=== PATIENT | female | born 1975 | race Caucasian/White ===

== ENCOUNTER 2017-03-23 13:02 | Inpatient (IN) | payer BC ==
[2017-03-23] MEDS ORDERED: Nalbuphine 20 MG/1 ML Amp IVPUSH PRN (13:05)
[2017-03-23] MEDS ORDERED: Ondansetron 4 MG/2 ML SDV IVPUSH PRN ×2 (13:05→13:34)
[2017-03-23] MEDS ORDERED: Sodium Chloride 0.9% 10 ML Syringe FLUSH PRN (13:05)
[2017-03-23] MEDS ORDERED: Lactated Ringers 1,000 ML ONE (13:08)
[2017-03-23] MEDS: Lactated Ringers 1,000 ML IV SCH ×2 (13:10→14:15)
[2017-03-23] MEDS ORDERED: fentaNYL 100 MCG/2 ML SDV EPIDUR PRN (13:34)
[2017-03-23] MEDS ORDERED: ePHEDrine 50 MG/ML SDV IVPUSH PRN (13:34)
--- NOTE | 2017-03-23 13:39 | PCM.PREANE ---
Preanesthetic Assessment - Anesthesia/Transfusion/Family Hx Anesthesia History: Prior Anesthesia Without Reaction Family History of Anesthesia Reaction: No Transfusion History: No Prior Transfusion(s) Intubation History: Unknown - Review of Systems General: No Symptoms Pulmonary: No Symptoms Cardiovascular: No Symptoms Gastrointestinal: No Symptoms Neurological: No Symptoms Other: Reports: None - Physical Assessment NPO Status Date: 03/23/17 NPO Status Time: 09:00 Pulse: 89 O2 Sat by Pulse Oximetry: 98 Respiratory Rate: 20 Blood Pressure: 115/75 Temperature: 36.7 C Height: 1.65 m Weight: 73.482 kg ASA Class: 2 Mental Status: Alert & Oriented x3 Airway Class: Mallampati = 2 Dentition: Reports: Normal Dentition, Caries Thyro-Mental Finger Breadths: 3 Mouth Opening Finger Breadths: 3 ROM/Head Extension: Full Lungs: Clear to Auscultation, Normal Respiratory Effort Cardiovascular: Regular Rate, Regular Rhythm, No Murmurs - Lab Values: Laboratory Last Values WBC 17.93 K/mm3 (3.98-10.04) H 03/23/17 13:13 RBC 4.41 M/mm3 (3.98-5.22) 03/23/17 13:13 Hgb 13.5 gm/L (11.2-15.7) 03/23/17 13:13 Hct 40.7 % (34.1-44.9) 03/23/17 13:13 MCV 92.3 fl (79.4-94.8) 03/23/17 13:13 MCH 30.6 pg (25.6-32.2) 03/23/17 13:13 MCHC 33.2 g/dl (32.2-35.5) 03/23/17 13:13 RDW Std Deviation 46.4 fL (36.4-46.3) H 03/23/17 13:13 Plt Count 187 K/mm3 (182-369) 03/23/17 13:13 MPV 12.0 fl (9.4-12.3) 03/23/17 13:13 Neut % (Auto) 85.6 % (34.0-71.1) H 03/23/17 13:13 Lymph % (Auto) 8.5 % (19.3-51.7) L 03/23/17 13:13 [place] % (Auto) 5.4 % (4.7-12.5) 03/23/17 13:13 Eos % (Auto) 0.1 (0.7-5.8) L 03/23/17 13:13 Baso % (Auto) 0.1 % (0.1-1.2) 03/23/17 13:13 Neut # (Auto) 15.33 K/mm3 (1.56-6.13) H 03/23/17 13:13 Lymph # (Auto) 1.53 K/mm3 (1.18-3.74) 03/23/17 13:13 [place] # (Auto) 0.97 K/mm3 (0.24-0.36) H 03/23/17 13:13 Eos # (Auto) 0.02 K/mm3 (0.04-0.36) L 03/23/17 13:13 Baso # (Auto) 0.02 K/mm3 (0.01-0.08) 03/23/17 13:13 Above labs reviewed and noted. 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: Other OB/BYN History: Csection 2010 - SUBSTANCE USE Smoking Status *Q: Never Smoker Second Hand Smoke Exposure: No Recreational Drug Use History: No - CURRENT (IN HOUSE) MEDS Current Meds: Current Medications Ephedrine Sulfate (Ephedrine Sulfate) 5 mg IVPUSH ASDIRECTED PRN PRN Reason: Hypotension Fentanyl (Sublimaze) 100 mcg EPIDUR Q3H PRN PRN Reason: Pain Fentanyl/Bupivacaine HCl (Fentanyl/Bupivacaine/Ns 2 Mcg-0.125% 100 Ml) 100 ml EPIDUR ASDIRECTED BRITTANY Lactated Ringer's (Ringers, Lactated) 1,000 mls @ 100 mls/hr IV ASDIRECTED BRITTANY Last Admin: 03/23/17 13:10 Dose: 999 mls/hr Oxytocin 20 unit/ Lactated (Ringer's) 1,002 mls @ 500 mls/hr IV ASDIRECTED BRITTANY Nalbuphine HCl (Nubain) 10 mg IVPUSH Q2H PRN PRN Reason: Pain (moderate 4-6) Ondansetron HCl (Zofran) 4 mg IVPUSH Q4H PRN PRN Reason: Nausea/Vomiting Ondansetron HCl (Zofran) 4 mg IVPUSH ONETIME PRN PRN Reason: Nausea/Vomiting Sodium Chloride (Saline Flush) 10 ml FLUSH ASDIRECTED PRN PRN Reason: Keep Vein Open Discontinued Medications Lactated Ringer's (Ringers, Lactated) Confirm Administered Dose 1,000 mls @ as directed .ROUTE .[facility] ONE Stop: 03/23/17 13:09
[2017-03-23] MEDS ORDERED: Bupivacaine/fentaNYL/NS 100 ML Bag EPIDUR SCH (13:45)
--- NOTE | 2017-03-23 15:35 | PCM.LDHP ---
L&D History of Present Illness - General Date of Service: 03/23/17 Admit Problem/Dx: Patient Status Order with Admit Dx/Problem 03/23/17 13:05 Patient Status [ADT] Routine Admission Diagnosis/Problem Admission Diagnosis/Problem Normal labor Source of Information: Patient History Limitations: Reports: No Limitations - History of Present Illness Introduction:: 41-year-old first delivery followed by 2 vaginal after section. Patient presented to labor and delivered estimated gestational age of 39 weeks and 1 day in active labor at 6-7 cm dilated 100% effaced anterior soft vertex -1 membranes ruptured spontaneously group B strep negative oh negative antibody screen negative hemoglobin hematocrit on 4.1/ and 2.9 platelets 336,000, rubella positive, RPR nonreactive, hepatitis B surface antigen -1 hour OB glucose screen on 01/06/17 was 191 3 hour glucose tolerance test report is within normal limits patient desires repeat . 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: : 4 Para: 3 (3003) Other OB/BYN History: Csection 2010 Social & Family History - Family History Family Medical History: Noncontributory - Tobacco Use Smoking Status *Q: Never Smoker Second Hand Smoke Exposure: No - Recreational Drug Use Recreational Drug Use: No H&P Review of Systems - Review of Systems: Review Of Systems: See Below General: Reports: No Symptoms HEENT: Reports: No Symptoms Pulmonary: Reports: No Symptoms Cardiovascular: Reports: No Symptoms Gastrointestinal: Reports: No Symptoms Genitourinary: Reports: No Symptoms Musculoskeletal: Reports: No Symptoms Skin: Reports: No Symptoms Psychiatric: Reports: No Symptoms Neurological: Reports: No Symptoms Hematologic/Lymphatic: Reports: No Symptoms Immunologic: Reports: No Symptoms L&D Exam - Exam Exam: See Below - Vital Signs Vital Signs: Last Vital Signs Temp 98.1 F 03/23/17 13:49 Pulse 96 03/23/17 14:31 Resp 20 03/23/17 13:49 BP 97/52 L 03/23/17 14:31 Pulse Ox 98 03/23/17 13:49 Weight: 162 lb - OB Specific Fundal Height In cm: 39 Contraction Duration (sec): 60 Contraction Frequency (min): 2 Contraction Intensity: Moderate to Strong Movement: Active Heart Tones: Present Heart Tones per Min: 135 Heart Rate (FHR) Variability: Moderate (6-25 bmp) Presentation: Vertex - Mackey Score Mackey Score Cervix Position: Anterior Mackey Score Consistency: Soft Mackey Score Effacement: >80% Mackey Score Dilation: > 5 cm Mackey Score Infant's Station: -1 ,0 Mackey Score Total: 12 - Exam General: Alert, Oriented HEENT: Conjunctiva Clear, Mucosa Moist & [place], PERRLA Neck: Supple, Trachea Midline Lungs: Clear to Auscultation, Normal Respiratory Effort Cardiovascular: Regular Rate, Regular Rhythm GI/Abdominal Exam: Normal Bowel Sounds, Soft, Non-Tender, No Organomegaly, No Distention, No Abnormal Bruit, No Mass, Pelvis Stable Rectal Exam: Normal Exam Genitourinary: Normal external exam Extremities: Normal Inspection, Normal Range of Motion, Non-Tender, No Pedal Edema, Normal Capillary Refill Skin: Warm, Dry, Intact Neurological: Cranial Nerves Intact, Reflexes Equal Bilateral Psychiatric: Alert, Normal Affect, Normal Mood - Patient Data Lab Results Last 24 hrs: Laboratory Results - last 24 hr 03/23/17 03/23/17 Range/Units 13:13 13:13 WBC 17.93 H (3.98-10.04) K/mm3 RBC 4.41 (3.98-5.22) M/mm3 Hgb 13.5 (11.2-15.7) gm/L Hct 40.7 (34.1-44.9) % MCV 92.3 (79.4-94.8) fl MCH 30.6 (25.6-32.2) pg MCHC 33.2 (32.2-35.5) g/dl RDW Std Deviation 46.4 H (36.4-46.3) fL Plt Count 187 (182-369) K/mm3 MPV 12.0 (9.4-12.3) fl Neut % (Auto) 85.6 H (34.0-71.1) % Lymph % (Auto) 8.5 L (19.3-51.7) % [place] % (Auto) 5.4 (4.7-12.5) % Eos % (Auto) 0.1 L (0.7-5.8) Baso % (Auto) 0.1 (0.1-1.2) % Neut # (Auto) 15.33 H (1.56-6.13) K/mm3 Lymph # (Auto) 1.53 (1.18-3.74) K/mm3 [place] # (Auto) 0.97 H (0.24-0.36) K/mm3 Eos # (Auto) 0.02 L (0.04-0.36) K/mm3 Baso # (Auto) 0.02 (0.01-0.08) K/mm3 Manual Slide Review Abnormal smear Blood Type O NEGATIVE Gel Antibody Screen Positive Result Diagrams: 03/23/17 13:13 - Problem List (1) 39 weeks gestation of SNOMED Code(s): 79172080 ICD Code: Z3A.39 - 39 WEEKS GESTATION OF Status: Acute Current Visit: Yes (2) H/O section complicating SNOMED Code(s): 225726372 ICD Code: O34.219 - MATERNAL CARE FOR UNSP TYPE SCAR FROM PREVIOUS DEL Status: Acute Current Visit: Yes (3) Vaginal after () SNOMED Code(s): 337764253 ICD Code: O34.219 - MATERNAL CARE FOR UNSP TYPE SCAR FROM PREVIOUS DEL Status: Acute Current Visit: Yes Problem List Initiated/Reviewed/Updated: No Orders Last 24hrs: Active Orders 24 hr Category Date Time Status Patient Status [ADT] Routine ADT 03/23/17 13:05 Active Notify Provider [RC] PFP Care 03/23/17 13:05 Active Peripheral IV Care [RC] . DIRECTED Care 03/23/17 13:05 Active Vital Signs [RC] PER UNIT ROUTINE Care 03/23/17 13:05 Active Clear Liquid Diet [DIET] Diet 03/23/17 Dinner Active ANTIBODY IDENTIFICATION [BBK] Stat Lab 03/23/17 13:13 Results TYPE AND SCREEN [BBK] Stat Lab 03/23/17 13:13 Results Bupivacaine/fentaNYL/NS [fentaNYL/Bupivacaine/NS 2 MCG- Med 03/23/17 13:45 Active 0.125% 100 ML] 100 ml EPIDUR ASDIRECTED Lactated Ringers [Ringers, Lactated] 1,000 ml Med 03/23/17 13:15 Active IV ASDIRECTED Nalbuphine [Nubain] Med 03/23/17 13:05 Active 10 mg IVPUSH Q2H PRN Ondansetron [Zofran] Med 03/23/17 13:34 Active 4 mg IVPUSH ONETIME PRN Ondansetron [Zofran] Med 03/23/17 13:05 Active 4 mg IVPUSH Q4H PRN Oxytocin [Pitocin] 20 unit Med 03/23/17 13:15 Active Lactated Ringers [Ringers, Lactated] 1,000 ml IV ASDIRECTED Sodium Chloride 0.9% [Saline Flush] Med 03/23/17 13:05 Active 10 ml FLUSH ASDIRECTED PRN ePHEDrine [ePHEDrine Sulfate] Med 03/23/17 13:34 Active 5 mg IVPUSH ASDIRECTED PRN fentaNYL [Sublimaze] Med 03/23/17 13:34 Active 100 mcg EPIDUR Q3H PRN Electronic Heart Tones Ext w TOCO [WOMSER] Oth 03/23/17 13:05 Ordered Routine Electronic Heart Tones Internal [WOMSER] Per Unit Oth 03/23/17 13:05 Ordered Routine Peripheral IV Insertion Adult [OM.PC] Routine Oth 03/23/17 13:05 Ordered Resuscitation Status Routine Resus Stat 03/23/17 13:05 Ordered Medication Orders Ephedrine Sulfate (Ephedrine Sulfate) 5 mg IVPUSH ASDIRECTED PRN PRN Reason: Hypotension Fentanyl (Sublimaze) 100 mcg EPIDUR Q3H PRN PRN Reason: Pain Last Admin: 03/23/17 13:51 Dose: 100 mcg Fentanyl/Bupivacaine HCl (Fentanyl/Bupivacaine/Ns 2 Mcg-0.125% 100 Ml) 100 ml EPIDUR ASDIRECTED [facility] Last Admin: 03/23/17 13:50 Dose: 100 ml Lactated Ringer's (Ringers, Lactated) 1,000 mls @ 100 mls/hr IV ASDIRECTED [facility] Last Admin: 03/23/17 14:15 Dose: 999 mls/hr Infusion: 03/23/17 14:11 Dose: 999 mls/hr Admin: 03/23/17 13:10 Dose: 999 mls/hr Oxytocin 20 unit/ Lactated (Ringer's) 1,002 mls @ 500 mls/hr IV ASDIRECTED BRITTANY Last Admin: 03/23/17 15:16 Dose: 500 mls/hr Nalbuphine HCl (Nubain) 10 mg IVPUSH Q2H PRN PRN Reason: Pain (moderate 4-6) Last Admin: 03/23/17 13:40 Dose: 10 mg Ondansetron HCl (Zofran) 4 mg IVPUSH Q4H PRN PRN Reason: Nausea/Vomiting Ondansetron HCl (Zofran) 4 mg IVPUSH ONETIME PRN PRN Reason: Nausea/Vomiting Sodium Chloride (Saline Flush) 10 ml FLUSH ASDIRECTED PRN PRN Reason: Keep Vein Open
--- NOTE | 2017-03-23 15:40 | PCM.DEL ---
L & D Note - General Info Date of Service: 03/23/17 - Delivery Note Labor: Spontaneous Delivery Outcome: Livebirth (Male liveborn 1510 hrs. Friday03/23/17 , second -degree midline laceration repaired with 3-0 Monocryl, weight pending, Apgars 9/ 9) Delivery Method: Spontaneous Vaginal Delivery-Single Delivery Mode: Spontaneous Presentation: Right Occiput Anterior (KIARA) Nuchal Cord: None Prep: Povidone-Iodine (Betadine Anesthesia Type: Epidural Amniotic Fluid Description: Clear Episiotomy Type: None Laceration: 2nd Degree Suture type: Other (Monocryl) Suture size: 3-0 Placenta: Intact, Spontaneous (1513 hrs. examined intact discarded) Cord: 3 Vessels Estimated Blood Loss: 250 Resuscitation Needed: No [place]: Suctioned, Bulb Syringe, Stimulated, Warmed, [place] Used, Warmer Used Provider: Aurelio Mosquera Score 1 min: 8 Score 5 min: 9 - Patient Data Vitals - Most Recent: Last Vital Signs Temp 98.1 F 03/23/17 13:49 Pulse 96 03/23/17 14:31 Resp 20 03/23/17 13:49 BP 97/52 L 03/23/17 14:31 Pulse Ox 98 03/23/17 13:49 Weight - Most Recent: 162 lb Lab Results Last 24 Hours: Laboratory Results - last 24 hr 03/23/17 03/23/17 Range/Units 13:13 13:13 WBC 17.93 H (3.98-10.04) K/mm3 RBC 4.41 (3.98-5.22) M/mm3 Hgb 13.5 (11.2-15.7) gm/L Hct 40.7 (34.1-44.9) % MCV 92.3 (79.4-94.8) fl MCH 30.6 (25.6-32.2) pg MCHC 33.2 (32.2-35.5) g/dl RDW Std Deviation 46.4 H (36.4-46.3) fL Plt Count 187 (182-369) K/mm3 MPV 12.0 (9.4-12.3) fl Neut % (Auto) 85.6 H (34.0-71.1) % Lymph % (Auto) 8.5 L (19.3-51.7) % [place] % (Auto) 5.4 (4.7-12.5) % Eos % (Auto) 0.1 L (0.7-5.8) Baso % (Auto) 0.1 (0.1-1.2) % Neut # (Auto) 15.33 H (1.56-6.13) K/mm3 Lymph # (Auto) 1.53 (1.18-3.74) K/mm3 [place] # (Auto) 0.97 H (0.24-0.36) K/mm3 Eos # (Auto) 0.02 L (0.04-0.36) K/mm3 Baso # (Auto) 0.02 (0.01-0.08) K/mm3 Manual Slide Review Abnormal smear Blood Type O NEGATIVE Gel Antibody Screen Positive Med Orders - Current: Current Medications Ephedrine Sulfate (Ephedrine Sulfate) 5 mg IVPUSH ASDIRECTED PRN PRN Reason: Hypotension Fentanyl (Sublimaze) 100 mcg EPIDUR Q3H PRN PRN Reason: Pain Last Admin: 03/23/17 13:51 Dose: 100 mcg Fentanyl/Bupivacaine HCl (Fentanyl/Bupivacaine/Ns 2 Mcg-0.125% 100 Ml) 100 ml EPIDUR ASDIRECTED [facility] Last Admin: 03/23/17 13:50 Dose: 100 ml Lactated Ringer's (Ringers, Lactated) 1,000 mls @ 100 mls/hr IV ASDIRECTED [facility] Last Admin: 03/23/17 14:15 Dose: 999 mls/hr Oxytocin 20 unit/ Lactated (Ringer's) 1,002 mls @ 500 mls/hr IV ASDIRECTED [facility] Last Admin: 03/23/17 15:16 Dose: 500 mls/hr Nalbuphine HCl (Nubain) 10 mg IVPUSH Q2H PRN PRN Reason: Pain (moderate 4-6) Last Admin: 03/23/17 13:40 Dose: 10 mg Ondansetron HCl (Zofran) 4 mg IVPUSH Q4H PRN PRN Reason: Nausea/Vomiting Ondansetron HCl (Zofran) 4 mg IVPUSH ONETIME PRN PRN Reason: Nausea/Vomiting Sodium Chloride (Saline Flush) 10 ml FLUSH ASDIRECTED PRN PRN Reason: Keep Vein Open Discontinued Medications Lactated Ringer's (Ringers, Lactated) Confirm Administered Dose 1,000 mls @ as directed .ROUTE .[facility] ONE Stop: 03/23/17 13:09 Last Admin: 03/23/17 15:17 Dose: Not Given - Problem List & Annotations (1) 39 weeks gestation of SNOMED Code(s): 08588911 Code(s): Z3A.39 - 39 WEEKS GESTATION OF Status: Acute Current Visit: Yes (2) H/O section complicating SNOMED Code(s): 830784705 Code(s): O34.219 - MATERNAL CARE FOR UNSP TYPE SCAR FROM PREVIOUS DEL Status: Acute Current Visit: Yes (3) Vaginal after () SNOMED Code(s): 612865893 Code(s): O34.219 - MATERNAL CARE FOR UNSP TYPE SCAR FROM PREVIOUS DEL Status: Acute Current Visit: Yes (4) Second degree perineal laceration, delivered, current hospitalization SNOMED Code(s): 761999190 Code(s): O70.1 - SECOND DEGREE PERINEAL LACERATION DURING DELIVERY Status: Acute Current Visit: Yes - Problem List Review Problem List Initiated/Reviewed/Updated: No - My Orders Last 24 Hours: My Active Orders 03/23/17 13:05 Patient Status [ADT] Routine Notify Provider [RC] PFP Peripheral IV Care [RC] . DIRECTED Vital Signs [RC] PER UNIT ROUTINE Nalbuphine [Nubain] 10 mg IVPUSH Q2H PRN Ondansetron [Zofran] 4 mg IVPUSH Q4H PRN Sodium Chloride 0.9% [Saline Flush] 10 ml FLUSH ASDIRECTED PRN Electronic Heart Tones Ext w TOCO [WOMSER] Routine Electronic Heart Tones Internal [WOMSER] Per Unit Routine Peripheral IV Insertion Adult [OM.PC] Routine Resuscitation Status Routine 03/23/17 13:13 ANTIBODY IDENTIFICATION [BBK] Stat TYPE AND SCREEN [BBK] Stat 03/23/17 13:15 Lactated Ringers [Ringers, Lactated] 1,000 ml IV ASDIRECTED Oxytocin [Pitocin] 20 unit Lactated Ringers [Ringers, Lactated] 1,000 ml IV ASDIRECTED 03/23/17 Dinner Clear Liquid Diet [DIET] - Plan Plan:: Spontaneous vaginal delivery, male liveborn, under epidural anesthesia, second- degree midline laceration, laceration repair with 3-0 Monocryl 1. No no episiotomy. successful. Delivery at 1510 hrs. Friday02/20/17 placenta delivered at 1513 hrs. intact discarded.
[2017-03-23] MEDS ORDERED: Docusate Sodium 100 MG Cap PO PRN (15:44)
[2017-03-23] MEDS ORDERED: Acetaminophen/oxyCODONE 325-5 MG Tab PO PRN (15:44)
[2017-03-23] MEDS ORDERED: Witch Hazel Medicated Pads 100/Jar TOP PRN (15:44)
[2017-03-23] MEDS ORDERED: Acetaminophen 325 MG Tab PO PRN (15:44)
[2017-03-23] MEDS ORDERED: Lanolin 100% Cream 7 GM Tube TOP PRN (15:44)
[2017-03-23] MEDS ORDERED: Benzocaine/Menthol 20%-0.5% Spray 56 GM Canister TOP PRN (15:44)
--- NOTE | 2017-03-23 20:54 | PCM48HPAN ---
Post Anesthesia Note - EVALUATION WITHIN 48HRS OF ANESTHETIC Vital Signs in Normal Range: Yes Patient Participated in Evaluation: Yes Respiratory Function Stable: Yes Airway Patent: Yes Cardiovascular Function Stable: Yes Hydration Status Stable: Yes Pain Control Satisfactory: Yes Nausea and Vomiting Control Satisfactory: Yes Mental Status Recovered: Yes
[2017-03-23] MEDS: Ibuprofen 600 MG Tab PO PRN (21:09)
[2017-03-23] MEDS ORDERED: Bupivacaine 0.25% 10 ML SDV ONE (22:22)
[2017-03-24] MEDS: Ibuprofen 600 MG Tab PO PRN ×3 (02:45→12:18)
--- NOTE | 2017-03-24 08:41 | PCM.DCSUM1 ---
Discharge Summary - Hospital Course Free Text/Narrative:: [facility] LIVE L/D Delivery Note Patient Name: WILMER CASTILLO Date of : 77 Patient Status: Inpatient Attending Provider: Aurelio Mosquera Date: 03/23/17 15:36 Initialization Date: 03/23/17 15:36 L & D Note - General Info Date of Service: 03/23/17 - Delivery Note Labor: Spontaneous Delivery Outcome: Livebirth (Male liveborn 1510 hrs. Friday03/23/17 , second -degree midline laceration repaired with 3-0 Monocryl, weight pending, Apgars 9/ 9) Infant Delivery Method: Spontaneous Vaginal Delivery-Single Infant Delivery Mode: Spontaneous Presentation: Right Occiput Anterior (KIARA) Nuchal Cord: None Prep: Povidone-Iodine (Betadine Anesthesia Type: Epidural Amniotic Fluid Description: Clear Episiotomy Type: None Laceration: 2nd Degree Suture type: Other (Monocryl) Suture size: 3-0 Placenta: Intact, Spontaneous (1513 hrs. examined intact discarded) Cord: 3 Vessels Estimated Blood Loss: 250 Resuscitation Needed: No : Suctioned, Bulb Syringe, Stimulated, Warmed, Benge Used, Warmer Used Provider: Aurelio Mosquera Score 1 min: 8 Score 5 min: 9 - Patient Data Vitals - Most Recent: Last Vital Signs Temp 98.1 F 03/23/17 13:49 Pulse 96 03/23/17 14:31 Resp 20 03/23/17 13:49 BP 97/52 L 03/23/17 14:31 Pulse Ox 98 03/23/17 13:49 Weight - Most Recent: 162 lb Lab Results Last 24 Hours: Laboratory Results - last 24 hr 03/23/17 03/23/17 Range/Units 13:13 13:13 WBC 17.93 H (3.98-10.04) K/mm3 RBC 4.41 (3.98-5.22) M/mm3 Hgb 13.5 (11.2-15.7) gm/L Hct 40.7 (34.1-44.9) % MCV 92.3 (79.4-94.8) fl MCH 30.6 (25.6-32.2) pg MCHC 33.2 (32.2-35.5) g/dl RDW Std Deviation 46.4 H (36.4-46.3) fL Plt Count 187 (182-369) K/mm3 MPV 12.0 (9.4-12.3) fl Neut % (Auto) 85.6 H (34.0-71.1) % Lymph % (Auto) 8.5 L (19.3-51.7) % Ceiba % (Auto) 5.4 (4.7-12.5) % Eos % (Auto) 0.1 L (0.7-5.8) Baso % (Auto) 0.1 (0.1-1.2) % Neut # (Auto) 15.33 H (1.56-6.13) K/mm3 Lymph # (Auto) 1.53 (1.18-3.74) K/mm3 Ceiba # (Auto) 0.97 H (0.24-0.36) K/mm3 Eos # (Auto) 0.02 L (0.04-0.36) K/mm3 Baso # (Auto) 0.02 (0.01-0.08) K/mm3 Manual Slide Review Abnormal smear Blood Type O NEGATIVE Gel Antibody Screen Positive Med Orders - Current: Current Medications Ephedrine Sulfate (Ephedrine Sulfate) 5 mg IVPUSH ASDIRECTED PRN PRN Reason: Hypotension Fentanyl (Sublimaze) 100 mcg EPIDUR Q3H PRN PRN Reason: Pain Last Admin: 03/23/17 13:51 Dose: 100 mcg Fentanyl/Bupivacaine HCl (Fentanyl/Bupivacaine/Ns 2 Mcg-0.125% 100 Ml) 100 ml EPIDUR ASDIRECTED [facility] Last Admin: 03/23/17 13:50 Dose: 100 ml Lactated Ringer's (Ringers, Lactated) 1,000 mls @ 100 mls/hr IV ASDIRECTED [facility] Last Admin: 03/23/17 14:15 Dose: 999 mls/hr Oxytocin 20 unit/ Lactated (Ringer's) 1,002 mls @ 500 mls/hr IV ASDIRECTED [facility] Last Admin: 03/23/17 15:16 Dose: 500 mls/hr Nalbuphine HCl (Nubain) 10 mg IVPUSH Q2H PRN PRN Reason: Pain (moderate 4-6) Last Admin: 03/23/17 13:40 Dose: 10 mg Ondansetron HCl (Zofran) 4 mg IVPUSH Q4H PRN PRN Reason: Nausea/Vomiting Ondansetron HCl (Zofran) 4 mg IVPUSH ONETIME PRN PRN Reason: Nausea/Vomiting Sodium Chloride (Saline Flush) 10 ml FLUSH ASDIRECTED PRN PRN Reason: Keep Vein Open Discontinued Medications Lactated Ringer's (Ringers, Lactated) Confirm Administered Dose 1,000 mls @ as directed .ROUTE .[facility]-MED ONE Stop: 03/23/17 13:09 Last Admin: 03/23/17 15:17 Dose: Not Given - Problem List & Annotations (1) 39 weeks gestation of SNOMED Code(s): 39147455 Code(s): Z3A.39 - 39 WEEKS GESTATION OF Status: Acute Current Visit: Yes (2) H/O section complicating SNOMED Code(s): 560279182 Code(s): O34.219 - MATERNAL CARE FOR UNSP TYPE SCAR FROM PREVIOUS DEL Status: Acute Current Visit: Yes (3) Vaginal after () SNOMED Code(s): 508981123 Code(s): O34.219 - MATERNAL CARE FOR UNSP TYPE SCAR FROM PREVIOUS DEL Status: Acute Current Visit: Yes (4) Second degree perineal laceration, delivered, current hospitalization SNOMED Code(s): 154175177 Code(s): O70.1 - SECOND DEGREE PERINEAL LACERATION DURING DELIVERY Status: Acute Current Visit: Yes - Problem List Review Problem List Initiated/Reviewed/Updated: No - My Orders Last 24 Hours: My Active Orders 03/23/17 13:05 Patient Status [ADT] Routine Notify Provider [RC] PFP Peripheral IV Care [RC] . DIRECTED Vital Signs [RC] PER UNIT ROUTINE Nalbuphine [Nubain] 10 mg IVPUSH Q2H PRN Ondansetron [Zofran] 4 mg IVPUSH Q4H PRN Sodium Chloride 0.9% [Saline Flush] 10 ml FLUSH ASDIRECTED PRN Electronic Heart Tones Ext w TOCO [WOMSER] Routine Electronic Heart Tones Internal [WOMSER] Per Unit Routine Peripheral IV Insertion Adult [OM.PC] Routine Resuscitation Status Routine 03/23/17 13:13 ANTIBODY IDENTIFICATION [BBK] Stat TYPE AND SCREEN [BBK] Stat 03/23/17 13:15 Lactated Ringers [Ringers, Lactated] 1,000 ml IV ASDIRECTED Oxytocin [Pitocin] 20 unit Lactated Ringers [Ringers, Lactated] 1,000 ml IV ASDIRECTED 03/23/17 Dinner Clear Liquid Diet [DIET] - Plan Plan:: Spontaneous vaginal delivery, male liveborn, under epidural anesthesia, second- degree midline laceration, laceration repair with 3-0 Monocryl 1. No no episiotomy. successful. Delivery at 1510 hrs. Friday02/20/17 placenta delivered at 1513 hrs. intact discarded. HPI Initial Comments: [facility] LIVE L/D Delivery Note Patient Name: WILMER CASTILLO Date of : 77 Patient Status: Inpatient Attending Provider: Aurelio Mosquera Date: 03/23/17 15:36 Initialization Date: 03/23/17 15:36 L & D Note - General Info Date of Service: 03/23/17 - Delivery Note Labor: Spontaneous Delivery Outcome: Livebirth (Male liveborn 1510 hrs. Friday03/23/17 , second -degree midline laceration repaired with 3-0 Monocryl, weight pending, Apgars 9/ 9) Delivery Method: Spontaneous Vaginal Delivery-Single Delivery Mode: Spontaneous Presentation: Right Occiput Anterior (KIARA) Nuchal Cord: None Prep: Povidone-Iodine (Betadine Anesthesia Type: Epidural Amniotic Fluid Description: Clear Episiotomy Type: None Laceration: 2nd Degree Suture type: Other (Monocryl) Suture size: 3-0 Placenta: Intact, Spontaneous (1513 hrs. examined intact discarded) Cord: 3 Vessels Estimated Blood Loss: 250 Resuscitation Needed: No : Suctioned, Bulb Syringe, Stimulated, Warmed, Benge Used, Warmer Used Provider: Aurelio Mosquera Score 1 min: 8 Score 5 min: 9 - Patient Data Vitals - Most Recent: Last Vital Signs Temp 98.1 F 03/23/17 13:49 Pulse 96 03/23/17 14:31 Resp 20 03/23/17 13:49 BP 97/52 L 03/23/17 14:31 Pulse Ox 98 03/23/17 13:49 Weight - Most Recent: 162 lb Lab Results Last 24 Hours: Laboratory Results - last 24 hr 03/23/17 03/23/17 Range/Units 13:13 13:13 WBC 17.93 H (3.98-10.04) K/mm3 RBC 4.41 (3.98-5.22) M/mm3 Hgb 13.5 (11.2-15.7) gm/L Hct 40.7 (34.1-44.9) % MCV 92.3 (79.4-94.8) fl MCH 30.6 (25.6-32.2) pg MCHC 33.2 (32.2-35.5) g/dl RDW Std Deviation 46.4 H (36.4-46.3) fL Plt Count 187 (182-369) K/mm3 MPV 12.0 (9.4-12.3) fl Neut % (Auto) 85.6 H (34.0-71.1) % Lymph % (Auto) 8.5 L (19.3-51.7) % Ceiba % (Auto) 5.4 (4.7-12.5) % Eos % (Auto) 0.1 L (0.7-5.8) Baso % (Auto) 0.1 (0.1-1.2) % Neut # (Auto) 15.33 H (1.56-6.13) K/mm3 Lymph # (Auto) 1.53 (1.18-3.74) K/mm3 Ceiba # (Auto) 0.97 H (0.24-0.36) K/mm3 Eos # (Auto) 0.02 L (0.04-0.36) K/mm3 Baso # (Auto) 0.02 (0.01-0.08) K/mm3 Manual Slide Review Abnormal smear Blood Type O NEGATIVE Gel Antibody Screen Positive Med Orders - Current: Current Medications Ephedrine Sulfate (Ephedrine Sulfate) 5 mg IVPUSH ASDIRECTED PRN PRN Reason: Hypotension Fentanyl (Sublimaze) 100 mcg EPIDUR Q3H PRN PRN Reason: Pain Last Admin: 03/23/17 13:51 Dose: 100 mcg Fentanyl/Bupivacaine HCl (Fentanyl/Bupivacaine/Ns 2 Mcg-0.125% 100 Ml) 100 ml EPIDUR ASDIRECTED [facility] Last Admin: 03/23/17 13:50 Dose: 100 ml Lactated Ringer's (Ringers, Lactated) 1,000 mls @ 100 mls/hr IV ASDIRECTED [facility] Last Admin: 03/23/17 14:15 Dose: 999 mls/hr Oxytocin 20 unit/ Lactated (Ringer's) 1,002 mls @ 500 mls/hr IV ASDIRECTED [facility] Last Admin: 03/23/17 15:16 Dose: 500 mls/hr Nalbuphine HCl (Nubain) 10 mg IVPUSH Q2H PRN PRN Reason: Pain (moderate 4-6) Last Admin: 03/23/17 13:40 Dose: 10 mg Ondansetron HCl (Zofran) 4 mg IVPUSH Q4H PRN PRN Reason: Nausea/Vomiting Ondansetron HCl (Zofran) 4 mg IVPUSH ONETIME PRN PRN Reason: Nausea/Vomiting Sodium Chloride (Saline Flush) 10 ml FLUSH ASDIRECTED PRN PRN Reason: Keep Vein Open Discontinued Medications Lactated Ringer's (Ringers, Lactated) Confirm Administered Dose 1,000 mls @ as directed .ROUTE .STK-MED ONE Stop: 03/23/17 13:09 Last Admin: 03/23/17 15:17 Dose: Not Given - Problem List & Annotations (1) 39 weeks gestation of SNOMED Code(s): 86253761 Code(s): Z3A.39 - 39 WEEKS GESTATION OF Status: Acute Current Visit: Yes (2) H/O section complicating SNOMED Code(s): 138641149 Code(s): O34.219 - MATERNAL CARE FOR UNSP TYPE SCAR FROM PREVIOUS DEL Status: Acute Current Visit: Yes (3) Vaginal after () SNOMED Code(s): 698067816 Code(s): O34.219 - MATERNAL CARE FOR UNSP TYPE SCAR FROM PREVIOUS DEL Status: Acute Current Visit: Yes (4) Second degree perineal laceration, delivered, current hospitalization SNOMED Code(s): 471828931 Code(s): O70.1 - SECOND DEGREE PERINEAL LACERATION DURING DELIVERY Status: Acute Current Visit: Yes - Problem List Review Problem List Initiated/Reviewed/Updated: No - My Orders Last 24 Hours: My Active Orders 03/23/17 13:05 Patient Status [ADT] Routine Notify Provider [RC] PFP Peripheral IV Care [RC] . DIRECTED Vital Signs [RC] PER UNIT ROUTINE Nalbuphine [Nubain] 10 mg IVPUSH Q2H PRN Ondansetron [Zofran] 4 mg IVPUSH Q4H PRN Sodium Chloride 0.9% [Saline Flush] 10 ml FLUSH ASDIRECTED PRN Electronic Heart Tones Ext w TOCO [WOMSER] Routine Electronic Heart Tones Internal [WOMSER] Per Unit Routine Peripheral IV Insertion Adult [OM.PC] Routine Resuscitation Status Routine 03/23/17 13:13 ANTIBODY IDENTIFICATION [BBK] Stat TYPE AND SCREEN [BBK] Stat 03/23/17 13:15 Lactated Ringers [Ringers, Lactated] 1,000 ml IV ASDIRECTED Oxytocin [Pitocin] 20 unit Lactated Ringers [Ringers, Lactated] 1,000 ml IV ASDIRECTED 03/23/17 Dinner Clear Liquid Diet [DIET] - Plan Plan:: Spontaneous vaginal delivery, male liveborn, under epidural anesthesia, second- degree midline laceration, laceration repair with 3-0 Monocryl 1. No no episiotomy. successful. Delivery at 1510 hrs. Friday02/20/17 placenta delivered at 1513 hrs. intact discarded. Brief History: [facility] LIVE . L/D Delivery Note. Patient Name: Geovanna CASTILLO Record Number: [id number]. Date of : Patient Status: Inpatient. Attending Provider: Aurelio Mosquera Number: [id number]. Date: 03/23/17 15:36Initialization Date: 03/23/17 15:36. L & D Note. - General Info. Date of Service: 03/23/17. - Delivery Note. Labor: Spontaneous. Delivery Outcome: Livebirth (Male liveborn 1510 hrs. Friday03/23/17 , second-degree midline laceration repaired with 3-0 Monocryl , weight pending, Apgars 9/9). Delivery Method: Spontaneous Vaginal Delivery-Single. Infant Delivery Mode: Spontaneous. Presentation: Right Occiput Anterior (KIARA). Nuchal Cord: None. Prep: Povidone-Iodine (Betadine. Anesthesia Type: Epidural. Amniotic Fluid Description: Clear. Episiotomy Type : None. Laceration: 2nd Degree. Suture type: Other (Monocryl). Suture size: 3 -0. Placenta: Intact, Spontaneous (1513 hrs. examined intact discarded). Cord : 3 Vessels. Estimated Blood Loss: 250. Resuscitation Needed: No. : Suctioned, Bulb Syringe, Stimulated, Warmed, Benge Used, Warmer Used. Provider: Aurelio Mosquera. Score 1 min: 8. Score 5 min : 9. - Patient Data. Vitals - Most Recent: Last Vital Signs. Temp 98.1 F 13:49. Pulse 96 03/23/17 14:31. Resp 20 03/23/17 13:49. BP 97/52 L 03/23/17 14:31. Pulse Ox 98 03/23/17 13:49. Weight - Most Recent: 162 lb. Lab Results Last 24 Hours: Laboratory Results - last 24 hr. 03/23/1711Range/Units. 13:1313:13. WBC 17.93 H (3.98-10.04) K/mm3. RBC 4.41 (3.98- 5.22) M/mm3. Hgb 13.5 (11.2-15.7) gm/L. Hct 40.7 (34.1-44.9) %. MCV 92.3 ( 79.4-94.8) fl. MCH 30.6 (25.6-32.2) pg. MCHC 33.2 (32.2-35.5) g/dl. RDW Std Deviation 46.4 H (36.4-46.3) fL. Plt Count 187 (182-369) K/mm3. MPV 12.0 (9.4-12.3) fl. Neut % (Auto) 85.6 H (34.0-71.1) %. Lymph % (Auto) 8.5 L (19.3-51.7) %. Ceiba % (Auto) 5.4 (4.7-12.5) %. Eos % (Auto) 0.1 L (0.7-5.8 ). Baso % (Auto) 0.1 (0.1-1.2) %. Neut # (Auto) 15.33 H (1.56-6.13) K/mm3. Lymph # (Auto) 1.53 (1.18-3.74) K/mm3. Ceiba # (Auto) 0.97 H (0.24-0.36) K/ mm3. Eos # (Auto) 0.02 L (0.04-0.36) K/mm3. Baso # (Auto) 0.02 (0.01-0.08) K /mm3. Manual Slide Review Abnormal smear. Blood Type O NEGATIVE. Gel Antibody Screen Positive. Med Orders - Current: Current Medications. Ephedrine Sulfate (Ephedrine Sulfate) 5 mg IVPUSH ASDIRECTED PRN. PRN Reason: Hypotension. Fentanyl (Sublimaze) 100 mcg EPIDUR Q3H PRN. PRN Reason: Pain. Last Admin: 03/23/17 13:51 Dose: 100 mcg. Fentanyl/Bupivacaine HCl (Fentanyl/ Bupivacaine/Ns 2 Mcg-0.125% 100 Ml) 100 ml EPIDUR ASDIRECTED [facility]. Last Admin: 03/23/17 13:50 Dose: 100 ml. Lactated Ringer's (Ringers, Lactated) 1,000 mls @ 100 mls/hr IV ASDIRECTED [facility]. Last Admin: 03/23/17 14:15 Dose: 999 mls/hr. Oxytocin 20 unit/ Lactated (Ringer's) 1,002 mls @ 500 mls/hr IV ASDIRECTED [facility]. Last Admin: 03/23/17 15:16 Dose: 500 mls/hr. Nalbuphine HCl (Nubain) 10 mg IVPUSH Q2H PRN. PRN Reason: Pain (moderate 4-6). Last Admin: 03/23/17 13 :40 Dose: 10 mg. Ondansetron HCl (Zofran) 4 mg IVPUSH Q4H PRN. PRN Reason: Nausea/Vomiting. Ondansetron HCl (Zofran) 4 mg IVPUSH ONETIME PRN. PRN Reason : Nausea/Vomiting. Sodium Chloride (Saline Flush) 10 ml FLUSH ASDIRECTED PRN. PRN Reason: Keep Vein Open. Discontinued Medications. Lactated Ringer's ( Ringers, Lactated) Confirm Administered Dose 1,000 mls @ as directed .ROUTE .STK -MED ONE. Stop: 03/23/17 13:09. Last Admin: 03/23/17 15:17 Dose: Not Given. - Problem List & Annotations. (1) 39 weeks gestation of . SNOMED Code (s): 40979667. Code(s): Z3A.39 - 39 WEEKS GESTATION OF Status: Acute Current Visit: Yes. (2) H/O section complicating . SNOMED Code(s): 854400896. Code(s): O34.219 - MATERNAL CARE FOR UNSP TYPE SCAR FROM PREVIOUS DEL Status: Acute Current Visit: Yes. (3) Vaginal after (). SNOMED Code(s): 513990795. Code(s): O34.219 - MATERNAL CARE FOR UNSP TYPE SCAR FROM PREVIOUS DEL Status: Acute Current Visit: Yes. (4) Second degree perineal laceration, delivered, current hospitalization. SNOMED Code(s): 618797488. Code(s): O70.1 - SECOND DEGREE PERINEAL LACERATION DURING DELIVERY Status: Acute Current Visit: Yes. - Problem List Review. Problem List Initiated/Reviewed/Updated: No. - My Orders. Last 24 Hours: My Active Orders. 03/23/17 13:05. Patient Status [ADT ] Routine. Notify Provider [RC] PFP. Peripheral IV Care [RC] . DIRECTED. Vital Signs [RC] PER UNIT ROUTINE. Nalbuphine [Nubain] 10 mg IVPUSH Q2H PRN. Ondansetron [Zofran] 4 mg IVPUSH Q4H PRN. Sodium Chloride 0.9% [Saline Flush] 10 ml FLUSH ASDIRECTED PRN. Electronic Heart Tones Ext w TOCO [ WOMSER] Routine. Electronic Heart Tones Internal [WOMSER] Per Unit Routine. Peripheral IV Insertion Adult [OM.PC] Routine. Resuscitation Status Routine. 03/23/17 13:13. ANTIBODY IDENTIFICATION [BBK] Stat. TYPE AND SCREEN [BBK] Stat. 03/23/17 13:15. Lactated Ringers [Ringers, Lactated] 1,000 ml IV ASDIRECTED. Oxytocin [Pitocin] 20 unit Lactated Ringers [Ringers, Lactated] 1 ,000 ml IV ASDIRECTED. 03/23/17 Dinner. Clear Liquid Diet [DIET]. - Plan. Plan:: Spontaneous vaginal delivery, male liveborn, under epidural anesthesia, second-degree midline laceration, laceration repair with 3-0 Monocryl 1. No no episiotomy. successful. Delivery at 1510 hrs. Friday02/20/17 placenta delivered at 1513 hrs. intact discarded. - Discharge Data Discharge Date: 03/24/17 Discharge Disposition: Home, Self-Care 01 Condition: Good - Discharge Diagnosis/Problem(s) (1) 39 weeks gestation of SNOMED Code(s): 62873655 ICD Code: Z3A.39 - 39 WEEKS GESTATION OF Status: Acute Current Visit: Yes (2) H/O section complicating SNOMED Code(s): 415477569 ICD Code: O34.219 - MATERNAL CARE FOR UNSP TYPE SCAR FROM PREVIOUS DEL Status: Acute Current Visit: Yes (3) Vaginal after () SNOMED Code(s): 726343160 ICD Code: O34.219 - MATERNAL CARE FOR UNSP TYPE SCAR FROM PREVIOUS DEL Status: Acute Current Visit: Yes (4) Second degree perineal laceration, delivered, current hospitalization SNOMED Code(s): 899264707 ICD Code: O70.1 - SECOND DEGREE PERINEAL LACERATION DURING DELIVERY Status : Acute Current Visit: Yes - Patient Summary/Data Complications: None Consults: None Hospital Course: Uneventful - Patient Instructions Diet: Regular Diet as Tolerated Driving: Do Not Drive (48 hours) Showering/Bathing: May Shower Notify Provider of: Fever, Increased Pain, Swelling and Redness, Drainage, Nausea and/or Vomiting - Discharge Plan Prescriptions/Med Rec: Lidocaine/Prilocaine [Lidocaine-Prilocaine Cream] 30 gm TP Q12HR #1 cream..g. Home Medications: Home Meds Acetaminophen [Tylenol] 650 mg PO Q6H PRN tablet 03/24/17 [Rx] Docusate Sodium [Colace] 100 mg PO BID PRN cap 03/24/17 [Rx] Ibuprofen [IJD: Ibuprofen] 600 mg PO Q6H PRN tablet 03/24/17 [Rx] Lanolin [Lansinoh HPA] 1 applic TOP ASDIRECTED PRN tube 03/24/17 [Rx] Lidocaine/Prilocaine [Lidocaine-Prilocaine Cream] 30 gm TP Q12HR #1 cream..g. [Rx] Jyotsna Kohler [Tucks] 1 pad TOP ASDIRECTED PRN pad 03/24/17 [Rx] Referrals: Latha Dumont MD [Physician] - (In 2 weeks) Natalie Zabala MD [Primary Care Provider] - (In 2 weeks) - Discharge Summary/Plan Comment DC Time >30 min.: No - Patient Data Vitals - Most Recent: Last Vital Signs Temp 99.0 F 03/24/17 04:50 Pulse 73 03/24/17 04:50 Resp 16 03/24/17 04:50 BP 101/54 L 03/24/17 04:50 Pulse Ox 98 03/24/17 04:50 Weight - Most Recent: 162 lb Lab Results - Last 24 hrs: Laboratory Results - last 24 hr 03/23/17 03/23/17 03/23/17 Range/Units 13:13 13:13 20:10 WBC 17.93 H (3.98-10.04) K/mm3 RBC 4.41 (3.98-5.22) M/mm3 Hgb 13.5 (11.2-15.7) gm/L Hct 40.7 (34.1-44.9) % MCV 92.3 (79.4-94.8) fl MCH 30.6 (25.6-32.2) pg MCHC 33.2 (32.2-35.5) g/dl RDW Std Deviation 46.4 H (36.4-46.3) fL Plt Count 187 (182-369) K/mm3 MPV 12.0 (9.4-12.3) fl Neut % (Auto) 85.6 H (34.0-71.1) % Lymph % (Auto) 8.5 L (19.3-51.7) % Ceiba % (Auto) 5.4 (4.7-12.5) % Eos % (Auto) 0.1 L (0.7-5.8) Baso % (Auto) 0.1 (0.1-1.2) % Neut # (Auto) 15.33 H (1.56-6.13) K/mm3 Lymph # (Auto) 1.53 (1.18-3.74) K/mm3 Ceiba # (Auto) 0.97 H (0.24-0.36) K/mm3 Eos # (Auto) 0.02 L (0.04-0.36) K/mm3 Baso # (Auto) 0.02 (0.01-0.08) K/mm3 Manual Slide Review Abnormal smear Blood Type O NEGATIVE Gel Antibody Screen Positive Screen 1 ros/5 flds - neg RhIG Candidate? Yes 03/24/17 Range/Units 06:50 WBC 13.27 H (3.98-10.04) K/mm3 RBC 3.90 L (3.98-5.22) M/mm3 Hgb 12.0 (11.2-15.7) gm/L Hct 36.2 (34.1-44.9) % MCV 92.8 (79.4-94.8) fl MCH 30.8 (25.6-32.2) pg MCHC 33.1 (32.2-35.5) g/dl RDW Std Deviation 46.9 H (36.4-46.3) fL Plt Count 165 L (182-369) K/mm3 MPV 11.8 (9.4-12.3) fl Neut % (Auto) 78.4 H (34.0-71.1) % Lymph % (Auto) 12.4 L (19.3-51.7) % Ceiba % (Auto) 8.6 (4.7-12.5) % Eos % (Auto) 0.2 L (0.7-5.8) Baso % (Auto) 0.2 (0.1-1.2) % Neut # (Auto) 10.41 H (1.56-6.13) K/mm3 Lymph # (Auto) 1.64 (1.18-3.74) K/mm3 Ceiba # (Auto) 1.14 H (0.24-0.36) K/mm3 Eos # (Auto) 0.03 L (0.04-0.36) K/mm3 Baso # (Auto) 0.02 (0.01-0.08) K/mm3 Manual Slide Review Blood Type Gel Antibody Screen Screen RhIG Candidate? Med Orders - Current: Current Medications Acetaminophen (Tylenol) 650 mg PO Q4H PRN PRN Reason: mild pain or fever Benzocaine/Menthol (Dermoplast Pain Relief [place]) 0 gm TOP ASDIRECTED PRN PRN Reason: Perineal Comfort Measure Docusate Sodium (Colace) 100 mg PO BID PRN PRN Reason: Constipation Emollient Ointment (Lansinoh Hpa) 0 gm TOP ASDIRECTED PRN PRN Reason: Sore Nipples Ibuprofen (Motrin) 600 mg PO Q4H PRN PRN Reason: Mild pain or fever Last Admin: 03/24/17 08:21 Dose: 600 mg Oxycodone/Acetaminophen (Percocet 325-5 Mg) 2 tab PO Q4H PRN PRN Reason: Pain (moderate 4-6) Witch Edita (Tucks) 1 pad TOP ASDIRECTED PRN PRN Reason: Hemorrhoid pain Discontinued Medications Ephedrine Sulfate (Ephedrine Sulfate) 5 mg IVPUSH ASDIRECTED PRN PRN Reason: Hypotension Fentanyl (Sublimaze) 100 mcg EPIDUR Q3H PRN PRN Reason: Pain Last Admin: 03/23/17 13:51 Dose: 100 mcg Fentanyl/Bupivacaine HCl (Fentanyl/Bupivacaine/Ns 2 Mcg-0.125% 100 Ml) 100 ml EPIDUR ASDIRECTED [facility] Last Admin: 03/23/17 13:50 Dose: 100 ml Lactated Ringer's (Ringers, Lactated) 1,000 mls @ 100 mls/hr IV ASDIRECTED [facility] Last Admin: 03/23/17 14:15 Dose: 999 mls/hr Oxytocin 20 unit/ Lactated (Ringer's) 1,002 mls @ 500 mls/hr IV ASDIRECTED [facility] Last Admin: 03/23/17 15:16 Dose: 500 mls/hr Lactated Ringer's (Ringers, Lactated) Confirm Administered Dose 1,000 mls @ as directed .ROUTE .STK-MED ONE Stop: 03/23/17 13:09 Last Admin: 03/23/17 15:17 Dose: Not Given Nalbuphine HCl (Nubain) 10 mg IVPUSH Q2H PRN PRN Reason: Pain (moderate 4-6) Last Admin: 03/23/17 13:40 Dose: 10 mg Ondansetron HCl (Zofran) 4 mg IVPUSH Q4H PRN PRN Reason: Nausea/Vomiting Ondansetron HCl (Zofran) 4 mg IVPUSH ONETIME PRN PRN Reason: Nausea/Vomiting Sodium Chloride (Saline Flush) 10 ml FLUSH ASDIRECTED PRN PRN Reason: Keep Vein Open *Q Meaningful Use (DIS) - VTE *Q VTE Criteria *Q: - Stroke *Q Stroke Criteria *Q: - AMI *Q AMI Criteria *Q:
[2017-03-24 17:15] VITALS: BP 101/65
== END 2017-03-24 17:31 | disposition home or self-care (01) | DRG 560 ==
LOC: JD.OBCHECK 13:02 → JD.OB 13:02 → JD.OBCHECK 13:05 → OBSVTOIN 15:10 → JD.OB 15:10
PROVIDERS: ADMIT Obstetrics & Gynecology; ATTEND Obstetrics & Gynecology
PROC: 10E0XZZ Delivery of Products of Conception, External Approach (ICD-10-PCS; principal; 2017-03-23)
PROC: 0KQM0ZZ Repair Perineum Muscle, Open Approach (ICD-10-PCS; 2017-03-23)
PROC: 00HU33Z Insertion of Infusion Device into Spinal Canal, Percutaneous Approach (ICD-10-PCS; 2017-03-23)
PROC: 3E0R3BZ Introduction of Anesthetic Agent into Spinal Canal, Percutaneous Approach (ICD-10-PCS; 2017-03-23)
DX: O42.02 Full-term premature rupture of membranes, onset of labor within 24 hours of rupture (principal); O70.1 Second degree perineal laceration during delivery; O34.211 Maternal care for low transverse scar from previous cesarean delivery; N85.8 Other specified noninflammatory disorders of uterus; Z3A.39 39 weeks gestation of pregnancy; Z37.0 Single live birth; Z88.0 Allergy status to penicillin
CPT/HCPCS: 36415; 59300; 59409; 85025; 85461; 86850; 86870; 86900; 86901; A9270-GY; J2300; J2590; J2790; J3010; J7120